=== PATIENT | female | born 1975 | race Asian ===

== ENCOUNTER 2016-10-07 16:33 | Emergency (ER) | payer OTHER ==
[2016-10-07] MEDS ORDERED: NS 1,000 ML IV ONE ×2 (17:18→18:54)
--- NOTE | 2016-10-07 17:29 | EDPHY ---
H & P Stated Complaint: syncopal episode at 0630/fever/runny nose /body aches Time Seen by Provider: 10/07/16 17:26 HPI/ROS: HPI: 41-year-old female presents to emergency department with chief concern dizziness, fall, URI symptoms. Developed nasal congestion, rhinorrhea, and headache in the past 1-2 days associated with headache. [place] dizzy this morning and fell 3 times. Struck her head. No neck or back pain. Denies fever, dysphagia, shortness of breath, chest pain, abdominal pain, nausea, vomiting, diarrhea, weakness or numbness of her extremities. No recent head trauma. ROS:10 point review of systems is negative other than as stated in HPI Source: Patient Exam Limitations: No limitations - Personal History LMP (Females 10-55): Over 28 Days Ago Current Tetanus/Diphtheria Vaccine: Yes - Medical/Surgical History Hx Asthma: No Hx Chronic Respiratory Disease: No Hx Diabetes: No Hx Cardiac Disease: No Hx Renal Disease: No Hx Cirrhosis: No Hx Alcoholism: No Hx HIV/AIDS: No Hx Splenectomy or Spleen Trauma: No Other PMH: hypothyroiod - Family History Significant Family History: No pertinent family hx - Social History Smoking Status: Never smoked Alcohol Use: Rarely Drug Use: None Additional Social History: - Physical Exam Exam: Vital signs reviewed by me General: Awake, alert, calm, cooperative. No acute distress. Head: Normalocephalic. Atraumatic. EENT: PERRLA. EOMI. No pallor or injection. Anicteric. No nystagmus. No injection. TMs intact bilaterally with normal landmarks. Rhinorrhea present with mildly erythematous turbinates bilaterally. Oropharynx without redness, exudates, or lesions. Tonsils 2+ bilaterally, no exudates. Neck: Supple, no midline tenderness. No lymphadenopathy. Full range of motion. Respiratory: Breathing unlabored. Breath sounds equal bilaterally and clear to auscultation. No adventitious sounds. CV: Chest nontender, atraumatic. Heart rate regular. No murmur, distal pulses 2+ bilaterally. Brisk cap refill all extremities. GI: Abdomen soft, nontender. Bowel sounds normoactive and positive x4 quadrants. Neuro: Alert. Oriented x 3. Speech clear. Nonfocal cranial nerves throughout. Sensation intact all extremities. [id number]-[id number] intact. Rapid alternating hand motions intact. Negative Romberg. Skin: Skin warm, dry, intact. No rashes, abrasions, or lacerations. Skin turgor normal. Extremities: Full range of motion in all 4 extremities. Strength 5+ all extremities. Constitutional: Initial Vital Signs Temperature (C) 37.2 C 10/07/16 16:41 Heart Rate 104 H 10/07/16 16:41 Respiratory Rate 18 10/07/16 16:41 Blood Pressure 93/64 L 10/07/16 16:41 O2 Sat (%) 97 10/07/16 16:41 O2 Delivery Mode Room Air Allergies/Adverse Reactions: No Known Allergies Allergy (Unverified 10/07/16 16:40) Home Medications: Medication Instructions Recorded Thyroid Med 10/07/16 Medical Decision Making - Diagnostics Imaging: Noncontrast Head CT Indication: Syncopal episode. Headache.. Technique: Standard noncontrast axial CT images of the head were performed. Dose reduction techniques were utilized. Findings: No intracranial hemorrhage, mass effect, swelling, or extraaxial fluid collection. The ventricles are normal caliber and midline. The bones appear unremarkable. Minimal mucosal thickening, bilateral maxillary and ethmoid sinuses. Impression: Normal noncontrast CT of the brain. Mild chronic paranasal sinus disease, without acute features. Results called to Dr. Mariya Martinez at the time of the interpretation. Dictated By: Moreno Barajas MD ED Course/Re-evaluation: 1700: 41-year-old female presents to emergency department with dizziness, URI symptoms, fell earlier today. Struck her head. CT head pending. EKG pending. Flu swab pending. Labs pending. 1750: EKG shows a sinus rhythm rate 94. No evidence of ischemia or dysrhythmia. Urine dip negative for HCG. Patient will go for CT head. 1820: CT head negative. 1835: White count 8930. Influenza negative. Metabolic panel unremarkable. Vitals remained stable. Patient feels better after 3 L normal saline. Ambulating without difficulty. Will DC to follow up with primary care. Differential Diagnosis: Differential includes but is not limited to intracranial bleed, skull fracture, metabolic derangement, dehydration, influenza - Data Points Laboratory Results: Laboratory Results 10/07/16 18:12 10/07/16 18:12 Medications Given: Discontinued Medications Sodium Chloride (Ns) 1,000 mls @ 0 mls/hr IV ONCE ONE PRN Reason: Wide Open Stop: 10/07/16 17:19 Last Admin: 10/07/16 17:25 Dose: 1,000 mls Sodium Chloride (Ns) 1,000 mls @ 0 mls/hr IV ONCE ONE PRN Reason: Wide Open Stop: 10/07/16 18:55 Last Admin: 10/07/16 19:17 Dose: 1,000 mls Departure - Departure Disposition: Home, Routine, Self-Care Clinical Impression: Dizziness, Upper respiratory infection Condition: Good Instructions: Upper Respiratory Infection (ED), Dizziness (ED) Additional Instructions: Plan: Negative for influenza. CT head is negative. Follow up with primary care within the next 1-2 days for recheck without fail-- When you call to schedule appointment, please let the office know you are an " ER follow up" appointment" Drink plenty of fluids For worsening symptoms return for recheck Referrals: NONE *PRIMARY CARE P,. [Primary Care Provider] - As per Instructions Maya Gonzalez RN, [employer] [Certified Nurse Practioner] - As per Instructions Deepthi Mckeon MD [Doctor of Osteopathy] - As per Instructions
--- NOTE | 2016-10-07 17:52 | CPEKG ---
Heart Rate: 94 RR Interval: 638 P-R Interval: 132 QRSD Interval: 70 QT Interval: 340 QTC Interval: 426 P [place]: 44 QRS [place]: -14 T Wave [place]: 22 EKG Severity - BORDERLINE ECG - EKG Impression: SINUS RHYTHM EKG Impression: INFERIOR Q WAVES, PROBABLY NORMAL VARIATION Electronically Signed By: Juany Ellis 07-Oct-2016 20:42:50
[2016-10-07 18:21] LABS: % IMMATURE GRANULYOCYTES 0.2 % (0.0-1.1); ABSOLUTE IMMATURE GRANULOCYTES 0.02 10^3/uL (0.00-0.10); ADD DIFF? NO; ADD MORPH? NO; ADD SCAN? NO; ATYPICAL LYMPHOCYTE FLAG 0 (0-99); FRAGMENT RBC FLAG 0 (0-99); HEMATOCRIT 43.2 % (38.0-47.0); LEFT SHIFT FLG 10 (0-99); LIPEMIA HEMOLYSIS FLAG 90 (0-99); MEAN CELL HEMOGLOBIN 30.5 pg (27.9-34.1); MEAN CELL HEMOGLOBIN CONCENTR. 34.7 g/dL (32.4-36.7); MEAN CELL VOLUME 87.8 fL (81.5-99.8); MEAN PLATELET VOLUME 9.3 fL (8.7-11.7); PLATELET CLUMPS FLAG 10 (0-99); PLATELET COUNT 236 10^3/uL (150-400); RED BLOOD CELL COUNT 4.92 10^6/uL (4.18-5.33)
[2016-10-07 18:50] VITALS: RESP 16
[2016-10-07 18:52] LABS: ANION GAP 13 mEq/L (8-16); CALCIUM 9.1 mg/dL (8.5-10.4); CARBON DIOXIDE 24 mEq/l (22-31); CHLORIDE 102 mEq/L (97-110); CREATININE 0.6 mg/dL (0.6-1.0); GLOMERULAR FILTRATION RATE > 60; GLUCOSE 133 mg/dL (70-100); SODIUM 139 mEq/L (134-144)
[2016-10-07 19:56] VITALS: BP 110/68; PULSE 69; TEMP 98.4; O2SAT 97
== END 2016-10-07 19:56 | disposition home or self-care (01) ==
DX: R42 Dizziness and giddiness (principal); J06.9 Acute upper respiratory infection, unspecified